=== PATIENT | female | born 1960 | race Caucasian/White ===

== ENCOUNTER 2016-11-08 15:56 | Outpatient (CLI) | payer OTHER ==
[~2016-11-08 15:56] MED LIST: ADVAIR DISKU1 INH; ALBUTEROL HFA60 DOSE IN; BACLOFEN20 MG PO; CLARITIN10 M2 PO; CONJUGATED ESTROGENS; DILTIAZEM HCL120 M2 PO; ESTRADIOL1 MG PO; FENTANYL50 MCG/HR TOP; L-THYROXINE PO; LORAZEPAM0.5 MG PO; NEURONTIN300 MG PO; NORCO1 TA1 PO; OXYBUTYNIN CHLOR5 MG PO; PROGESTERONE100 MG PO; SERTRALINE HCL50 MG PO; TOPIRAMATE25 MG PO; TRAZODONE HCL50 MG PO
--- NOTE | 2016-11-08 16:24 | DIAGNOSTIC IMAGING REPORT ---
PROCEDURE: XR THORACIC SPINE 3 VIEWS INDICATION: THORACIC SPINE PAIN TECHNIQUE: Three views. COMPARISON: None FINDINGS: Minor levoconvex scoliosis. Normal alignment with mild spurring of the mid thoracic spine. No fracture. Paraspinal soft tissues are normal. IMPRESSION: 1. Mild degenerative changes and levoscoliosis
== END 2016-11-08 23:00 | disposition home or self-care (01) ==
LOC: XR SRH 15:56
DX: M47.814 Spondylosis without myelopathy or radiculopathy, thoracic region (principal); M41.84 Other forms of scoliosis, thoracic region